=== PATIENT | male | born 1965 | race Hispanic/Latino ===

== ENCOUNTER 2023-07-19 08:06 | Inpatient (IN) | payer BC ==
[2023-07-19] MEDS ORDERED: fentaNYL 50 mcg/mL 1 mL Vial ONE (08:23)
[2023-07-19] MEDS ORDERED: Ondansetron PF 4 MG/2 ML Vial ONE ×2 (08:24→08:39)
[2023-07-19] MEDS ORDERED: EPINEPHrine 1 MG/10 ML Abboject SYRINGE ONE (08:24)
[2023-07-19] MEDS ORDERED: Midazolam HCl 2 mg/2 ml Vial ONE (08:24)
[2023-07-19] MEDS ORDERED: Atropine Sulfate 1 mg/10 ml Syringe ONE (08:26)
[2023-07-19] MEDS ORDERED: DOBUTamine 250 MG/20 ML VIAL ONE (08:37)
[2023-07-19] MEDS ORDERED: DOPamine 400 MG/D5W 250 ML 250 ML ONE (08:38)
[2023-07-19] MEDS ORDERED: Tirofiban-0.9% Sodium Chloride 250 ML ONE (09:51)
[2023-07-19] MEDS ORDERED: Amiodarone 150 MG/3 ML VIAL ONE ×2 (10:02→10:13)
[2023-07-19] MEDS ORDERED: Iopamidol 370 76% 100 ML VIAL ONE (10:17)
[2023-07-19 11:15] VITALS: BMI 20.3
[2023-07-19] MEDS: Sodium Chloride 0.9% 1,000 ML IV SCH (12:15)
[2023-07-19] MEDS: Clopidogrel Bisulfate 300 MG TAB PO SCH (13:26)
[2023-07-19] MEDS ORDERED: Nitroglycerin 0.4 MG TAB (25 Tab Bottle) SL PRN (14:31)
[2023-07-19] MEDS ORDERED: Ondansetron ODT 4 MG TAB PO PRN (14:32)
[2023-07-19] MEDS ORDERED: Ondansetron PF 4 MG/2 ML Vial IVP PRN (14:32)
[2023-07-19] MEDS ORDERED: Acetaminophen 650 MG Suppository PR PRN (14:32)
[2023-07-19] MEDS: Amiodarone 450 MG, Admixture Fee 1 EACH in Dextrose 5% in Water 250 ML IVPB SCH (19:41)
[2023-07-19] MEDS: Famotidine 20 MG TAB PO SCH (20:10)
[2023-07-19] MEDS: Rosuvastatin 20 MG TAB PO SCH (20:10)
[2023-07-19] MEDS: HYDROcodone/Acetaminophen 5/325 mg Tablet PO PRN (20:12)
[2023-07-20] MEDS: Tirofiban-0.9% Sodium Chloride 250 ML IVPB SCH (00:36)
[2023-07-20] MEDS: Clopidogrel Bisulfate 75 MG TAB PO SCH (07:45)
[2023-07-20] MEDS: Enoxaparin 40 MG (0.4 mL) SYRINGE SC SCH (07:45)
[2023-07-20] MEDS: Aspirin Chewable 81 MG TAB PO SCH (07:50)
[2023-07-20 08:30] LABS: #Basophils 0.04 10x3/uL (0.0-0.2); %Basophils 0.3 % (0.0-1.0); RBC Distribution Width 13.3 % (11.5-14.5)
[2023-07-20 08:42] LABS: %Eosinophils 0.2 % (0.0-10.0); %Lymphocytes 12.8 % (21.0-51.0); %Monocytes 11.3 % (0.0-10.0); Hematocrit 44.9 % (42.0-52.0); Hemoglobin 15.8 g/dL (14.0-18.0); Mean Corpuscular HGB CONC 35.2 g/dL (32.0-36.0); Mean Corpuscular Hemoglobin 31.9 pg (27.0-31.0); Mean Corpuscular Volume 90.5 fL (78.0-98.0); Mean Platelet Volume 10.6 fL (7.4-10.4); Platelet Count 200 10x3/uL (130-400); Red Blood Cell (RBC) Count 4.96 mill/uL (4.70-6.10)
[2023-07-20] MEDS: Acetaminophen 325 MG TAB PO PRN (09:10)
[2023-07-20 09:35] LABS: ALT (SGPT) 35 U/L (8-55); AST (SGOT) 129 U/L (5-34); Albumin 3.4 g/dL (3.5-5.0); Alkaline Phosphatase 44 U/L (40-110); Anion Gap 14 mmol/L (10-20); BUN (Urea Nitrogen) 14 mg/dL (8.4-25.7); Bilirubin, Total 0.6 mg/dL (0.2-1.2); Calc. Creatinine Clearance 100 mL/min (70-130); Calcium 8.7 mg/dL (7.8-10.44); Carbon Dioxide 19 mmol/L (22-29); Cardiac Risk 2.7 (Less than 4.5); Chloride 109 mmol/L (98-107); Cholesterol 96 mg/dl (< 200 Desired); Estimated GFR 101; Globulin 2.5 g/dL (2.4-3.5); Glucose 88 mg/dL (70-105); HDL Cholesterol 36 mg/dL (>60 Neg Risk); LDL Cholesterol, Calculated 43 mg/dL; Potassium 3.8 mmol/L (3.5-5.1); Protein, Total 5.9 g/dL (6.0-8.3); Sodium 138 mmol/L (136-145); Triglycerides 86 mg/dL (Less than 150)
[2023-07-20 11:24] LABS: Hemoglobin A1c 5.2 % (4.0-6.0)
[2023-07-22 05:44] LABS: #Basophils 0.03 10x3/uL (0.0-0.2); %Basophils 0.3 % (0.0-1.0); %Eosinophils 1.1 % (0.0-10.0); %Lymphocytes 12.9 % (21.0-51.0); %Monocytes 12.9 % (0.0-10.0); %Neutrophils 72.4 % (42.0-75.0); Hematocrit 43.1 % (42.0-52.0); Hemoglobin 15.3 g/dL (14.0-18.0); Mean Corpuscular HGB CONC 35.5 g/dL (32.0-36.0); Mean Corpuscular Hemoglobin 31.7 pg (27.0-31.0); Mean Corpuscular Volume 89.2 fL (78.0-98.0); Platelet Count 209 10x3/uL (130-400); RBC Distribution Width 12.7 % (11.5-14.5); Red Blood Cell (RBC) Count 4.83 mill/uL (4.70-6.10)
[2023-07-22 06:05] LABS: Anion Gap 13 mmol/L (10-20); BUN (Urea Nitrogen) 17 mg/dL (8.4-25.7); Calc. Creatinine Clearance 103 mL/min (70-130); Calcium 8.9 mg/dL (7.8-10.44); Carbon Dioxide 22 mmol/L (22-29); Chloride 108 mmol/L (98-107); Estimated GFR 102; Glucose 78 mg/dL (70-105); Magnesium 1.8 mg/dL (1.6-2.6); Potassium 3.5 mmol/L (3.5-5.1); Sodium 139 mmol/L (136-145)
[2023-07-22 16:29] VITALS: BP 124/79; TEMP 98.3
== END 2023-07-22 19:06 | disposition home or self-care (01) | DRG 322 ==
LOC: CCL 08:06 → CCU 08:49 → 2NO 07-21 07:16
PROVIDERS: ADMIT Internal Medicine Cardiovascular Disease; ATTEND Internal Medicine
PROC: 4A023N7 Measurement of Cardiac Sampling and Pressure, Left Heart, Percutaneous Approach (ICD-10-PCS; principal; 2023-07-19)
PROC: 027035Z Dilation of Coronary Artery, One Artery with Two Drug-eluting Intraluminal Devices, Percutaneous Approach (ICD-10-PCS; 2023-07-19)
PROC: B2151ZZ Fluoroscopy of Left Heart using Low Osmolar Contrast (ICD-10-PCS; 2023-07-19)
PROC: B2111ZZ Fluoroscopy of Multiple Coronary Arteries using Low Osmolar Contrast (ICD-10-PCS; 2023-07-19)
PROC: 3E033XZ Introduction of Vasopressor into Peripheral Vein, Percutaneous Approach (ICD-10-PCS; 2023-07-19)
DX: I21.3 ST elevation (STEMI) myocardial infarction of unspecified site (principal); I10 Essential (primary) hypertension; E78.5 Hyperlipidemia, unspecified; Z79.899 Other long term (current) drug therapy; F17.210 Nicotine dependence, cigarettes, uncomplicated; Z79.82 Long term (current) use of aspirin; I25.10 Atherosclerotic heart disease of native coronary artery without angina pectoris
CPT/HCPCS: 33210; 36415; 80048; 80053; 80061; 83036; 83735; 85025; 85347; 92941; 92973; 92978; 93005; 93010; 93306; 93458; 93798; C1726; C1753; C1769; C1874; C1894; C9606; J0171; J0282; J0461; J1250; J1265; J1650; J2250; J2405; J3010; J3246; J7050; J7070; Q9967